=== PATIENT | female | born 1995 | race Caucasian/White ===

== ENCOUNTER 2018-11-21 23:26 | Inpatient (IN) | payer OTHER ==
[~2018-11-21] VITALS: Ht 175.3 cm; Wt 81.2 kg
[2018-11-22] VITALS (11 sets, daily range): BP systolic 111–140; BP diastolic 59–93; PULSE 84–107; TEMP 97.9–98.7
[2018-11-22] MEDS ORDERED: PROAIR HFA0.09 MG/AC IH (00:42)
[2018-11-22 01:23] LABS: CALCIUM 9.7 mg/dL (8.4-10.2)
[2018-11-22 01:29] LABS: BASO # 0.1 (0.0-0.2); BASO % 1.1 % (0.0-2.0); EOS # 0.3 (0.0-0.7); EOS % 3.6 % (0-4.0); GRAN # 5.1 (1.4-6.5); GRAN % 63.2 % (42.2-75.2); HEMATOCRIT 38.2 % (37.0-47.0); HEMOGLOBIN 12.4 g/dl (12.5-16.0); LYMPH # 1.9 (1.2-3.4); LYMPH % 23.4 % (20.0-51.0); MEAN CELL VOLUME 86 fl (80.0-100.0); MEAN CORPUSCULAR HEMOGLOBIN 28 pg (27.0-31.0); MEAN CORPUSCULAR HGB CONC 33 g/dl (33.0-37.0); MEAN PLATELET VOLUME 11.5 fl (7.4-10.4); MONO # 0.7 (0.1-0.6); MONO % 8.5 % (1.7-9.3); PLATELET COUNT 258 K/mm3 (130-400); RED BLOOD COUNT 4.43 M/mm3 (4.10-5.30); REDCELL DISTRIBUTION WIDTH-CV 12.7 % (11.5-14.5)
[2018-11-22 01:43] LABS: INR 0.9 (0.8-3.0); PROTHROMBIN TIME 10.2 SECONDS (9.7-12.8)
--- NOTE | 2018-11-22 06:45 | NUR ---
ROUNDING. SEE ORDERS.
--- NOTE | 2018-11-22 08:00 | NUR ---
PATIENT IS ORIENTED BUT DROWSY. PATIENT REPORTS IV MORPHINE MAKES HER TIRED AND SLIGHTLY NAUSEATED AT TIMES. PATIENT RATES PAIN IN BLE AT 5/10 BUT DENIES NEED FOR PAIN MEDS AT THIS TIME. PATIENT RESTING UP IN BED WITH BLE ELEVATED WITH PILLOWS. BLE DRESSINGS ARE CD&I WITH ACEWRAP AND SPLINTS. PATIENT PLANNED TO GO TO THE OR LATER TODAY, SEE ORDERS. CONCENT ON CHART. POSITIVE PEDAL PULSES TO BLE. GOOD CMS TO BLE. PATIENT IS ABLE TO WIGGLE BLE TOES. HEAD TO TOE ASSESSMENT WNL. MADRIGAL TO DEPENDENT DRAINAGE WITH MOD AMOUNTS OF CLEAR YELLOW URINE NOTED. NPO. IV FLUIDS INFUSING VIA PUMP INTO RIGHT WRIST IV. PATIENT FALLING BACK TO SLEEP. CALL LIGHT IN REACH.
--- NOTE | 2018-11-22 11:15 | NUR ---
BUSHRA met with the patient to discuss discharge plan. The patient lives in [place] with a roommate. She reports independence with ADLs and does not have any DME. The patient's does not have a primary care provider and states that she has not needed one. She states that [facility] utilized [facility], if she did ever need anything. The patient receives her medications at the [facility] and she reports no difficulties obtaining her meds. The patient is self pay. Financial Counseling was consulted. The patient plans to return home upon discharge. No additional needs at this time.
--- NOTE | 2018-11-22 13:00 | NUR ---
PATIENT GOING DOWN TO OR VIA BED.
--- NOTE | 2018-11-22 18:03 | NUR ---
Patient back from OR at this time. VSS. Post op vitals monitoring in progress.
--- NOTE | 2018-11-22 19:45 | NUR ---
Patient reported 9/10 leg pain. Provided morphine and norco by THADDEUS Maxwell. Will monitor.
--- NOTE | 2018-11-22 20:14 | NUR ---
report given to THADDEUS Short. VSS. Fluids running in RW IV at 60 ml.hr with no complications. C/o pain, reported to marizol. Will resume care.
--- NOTE | 2018-11-22 21:17 | NUR ---
Assessment complete. Lungs clear. Heart sounds normal. Bowels active x4. Pulses present. Left lower leg cast present wrapped with hugh wrap. Right lower leg boot in place. Jang in place without complications. Rating pain 7/10. Will provide pain medication if due. Denies other needs at this time. Call light in reach.
--- NOTE | 2018-11-22 22:03 | NUR ---
Patient reports pain 7/10. Provided with PRN morphine.
[2018-11-23 00:21] VITALS: BP 123/72; PULSE 100; TEMP 98.5
--- NOTE | 2018-11-23 01:37 | NUR ---
Resting in bed asleep at this time.
[2018-11-23 03:38] VITALS: BP 121/67; PULSE 95; TEMP 98.4
--- NOTE | 2018-11-23 05:15 | NUR ---
Patient had uneventful night. Required pain intervention with morphine and norco during night. Ice applied to left lower leg. Resting in bed this AM.
--- NOTE | 2018-11-23 06:21 | NUR ---
Rating pain in left leg 7/10. Requested PRN morphine. Provided to patient.
--- NOTE | 2018-11-23 07:15 | NUR ---
Report given to THADDEUS Nesbitt
--- NOTE | 2018-11-23 07:32 | NUR ---
Received report from THADDEUS Short.
[2018-11-23 08:39] VITALS: BP 114/58; PULSE 88; TEMP 98.1
--- NOTE | 2018-11-23 09:50 | NUR ---
Pt awake and alert upon entry to room, C/O pain in both lower extremities, shift assessments complete, left Pt call light in reach, bed in lowest position.
[2018-11-23 11:45] VITALS: BP 122/66; PULSE 116; TEMP 98.6
--- NOTE | 2018-11-23 13:32 | NUR ---
SW met with the patient and patient's mother to review physical therapies recommendation of a wheelchair with a left elevating leg rest and a walker. The patient's mother reports that she has a walker, crutches, and a transport chair for the patient to use. The patient states that she would not have much use for a wheelchair and that she is not interested in being set up with one. BUSHRA updated the patient's nurse. No additional needs at this time.
[2018-11-23 16:05] VITALS: BP 127/68; PULSE 105; TEMP 97.9
[2018-11-23] MEDS ORDERED: ASPI325T6 PO (16:17)
[2018-11-23] MEDS ORDERED: ROXICODONE 55 MG/TAB PO (16:18)
[2018-11-23] MEDS ORDERED: NORCO 325 MG-7.1 TAB PO (16:18)
--- NOTE | 2018-11-23 19:18 | NUR ---
Pt discharged to home, escorted to visitors entrance, helped family place Pt in vehicle, left by private auto.
== END 2018-11-23 19:19 | disposition home or self-care (01) | DRG 494 ==
LOC: COL.ER 23:26 → MEDICAL 11-22 00:58
PROVIDERS: Emergency Medicine; ADMIT Orthopaedic Surgery
PROC: 0QSK36Z Reposition Left Fibula with Intramedullary Internal Fixation Device, Percutaneous Approach (ICD-10-PCS; principal; 2018-11-22 14:00)
PROC: 0QSH36Z Reposition Left Tibia with Intramedullary Internal Fixation Device, Percutaneous Approach (ICD-10-PCS; 2018-11-22 14:00)
DX: S82.242A Displaced spiral fracture of shaft of left tibia, initial encounter for closed fracture (principal); S92.354A Nondisplaced fracture of fifth metatarsal bone, right foot, initial encounter for closed fracture; S92.254A Nondisplaced fracture of navicular [scaphoid] of right foot, initial encounter for closed fracture; W17.89XA Other fall from one level to another, initial encounter; S82.442A Displaced spiral fracture of shaft of left fibula, initial encounter for closed fracture; J45.909 Unspecified asthma, uncomplicated
CPT/HCPCS: A9284; C1713; C1769; J0690; J1100; J1170; J1885; J2270; J2405; J2550; J2704; J3010; J7030; J7120; L4386; Q4041; Q4045

== ENCOUNTER → 2020-01-09 | Outpatient (CLI) | payer OTHER ==
[~2020-01-09] MED LIST: ASPI325T6 PO; NORCO 325 MG-7.1 TAB PO; PROAIR HFA0.09 MG/AC IH; ROXICODONE 55 MG/TAB PO
== END ==
LOC: COL.RAD 14:32
DX: S93.105A Unspecified dislocation of left toe(s), initial encounter (principal)

== ENCOUNTER 2020-03-23 05:31 | Day surgery (SDC) | payer OTHER ==
[~2020-03-23] VITALS: Ht 170.2 cm; Wt 86.1 kg
--- NOTE | 2020-03-23 05:40 | NUR ---
Patient admitted to room 8 ambulatory and is alert and oriented x3. Voices understanding of surgery and consent signed. Heart rate regular. Lungs clear. Patient changes clothing.
--- NOTE | 2020-03-23 06:00 | NUR ---
Toenail italian removed and clean scrub done on the left foot. IV started #18G LH. Patient readied for surgery.
[2020-03-23 06:10] VITALS: BP 129/85; PULSE 86; TEMP 97.9
--- NOTE | 2020-03-23 06:25 | NUR ---
Positive Covid test resulted in the computer. [place] superivsor notified of positive covid result and she will contact infection control nurse. Will await further instruction.
--- NOTE | 2020-03-23 07:00 | NUR ---
Dr. Jimenez here and surgery cancelled. Informed patient that Covid test was positive and patient instructed to go home and isolate herself. Patient did have her surgical mask on at all times. IV discontinued and patient discharged to home.
== END 2020-03-23 07:10 | disposition home or self-care (01) ==
LOC: SDCO 05:31
DX: S93.124D Dislocation of metatarsophalangeal joint of right lesser toe(s), subsequent encounter (principal); J45.909 Unspecified asthma, uncomplicated; Z53.8 Procedure and treatment not carried out for other reasons
CPT/HCPCS: J7120

== ENCOUNTER 2020-04-06 05:33 | Day surgery (SDC) | payer OTHER ==
[~2020-04-06] VITALS: Ht 170.2 cm; Wt 86.5 kg
[2020-04-06 06:02] VITALS: BP 124/78; PULSE 87; TEMP 99
[2020-04-06 08:25] VITALS: BP 111/79; PULSE 81; TEMP 97.1
--- NOTE | 2020-04-06 08:25 | NUR ---
Patient arrives to [facility] via cart. She is drowsy, but awakens to voice and answers questions appropriately. Monitoring is applied - VSS and WNL on room air. She has a dry dressing on her LLE. Dressing is clean/dry/intact. Her left ankle had a nerve block. She has no feeling in her left foot, but is able to wiggle her toes. Her toes are pink and warm. She has crutches post-op to utilize for ambulation until her block wears off. Lights are dimmed for comfort. Patient is resting.
[2020-04-06 08:40] VITALS: BP 110/72; PULSE 76
--- NOTE | 2020-04-06 08:40 | NUR ---
Patient is resting comfortably in her room. She denies pain or nausea. She is offered and receives water and crackers to eat. Tolerating PO well.
[2020-04-06 08:55] VITALS: BP 91/75; PULSE 83
[2020-04-06 09:10] VITALS: BP 104/70; PULSE 62
--- NOTE | 2020-04-06 09:10 | NUR ---
VSS and WNL on room air. Denies pain, nausea, or need.
--- NOTE | 2020-04-06 09:30 | NUR ---
Patient has met discharge criteria. Discharge instructions are discussed. She denies any questions and verbalizes understanding. She is instructed to use crutches until nerve block wears off, then WBAT through her heel per MD order. She is assisted to change clothing. Post-op shoe is fitted and applied. She is supplied with sterile water and gauze wrap for dressing changes. She knows to picker / packer her prescription and hydrogen peroxide at the pharmacy. Her mother is called for a ride. She is escorted to the exit via wheelchair by staff. She uses her crutches to ambulate to her ride's vehicle. She is discharged to home with ride in private vehicle at 0930.
== END 2020-04-06 09:30 | disposition home or self-care (01) ==
LOC: SDCO 05:33
DX: M24.477 Recurrent dislocation, right toe(s) (principal); J45.909 Unspecified asthma, uncomplicated
CPT/HCPCS: J0690; J1885; J2250; J2405; J2704; J2795; J3010; J7120

== ENCOUNTER 2021-12-21 17:12 | Emergency (ER) | payer OTHER ==
[~2021-12-21] VITALS: Ht 170.2 cm; Wt 97.3 kg
[2021-12-21 17:19] VITALS: TEMP 98.1
[2021-12-21 18:16] VITALS: BP 135/82; PULSE 98
== END 2021-12-21 18:19 | disposition home or self-care (01) ==
LOC: COL.ER 17:12
DX: S46.911A Strain of unspecified muscle, fascia and tendon at shoulder and upper arm level, right arm, initial encounter (principal); W01.0XXA Fall on same level from slipping, tripping and stumbling without subsequent striking against object, initial encounter

== ENCOUNTER → 2022-07-10 | Outpatient (CLI) | payer OTHER | LOC: COL.RAD 14:28 | DX: N83.201 Unspecified ovarian cyst, right side (principal); N83.202 Unspecified ovarian cyst, left side; E28.2 Polycystic ovarian syndrome ==